=== PATIENT | male | born 1935 | race Caucasian/White ===

== ENCOUNTER → 2017-05-21 | Outpatient (CLI) | payer OTHER | LOC: FIMAGING 12:56 | PROVIDERS: ATTEND Internal Medicine | DX: R91.1 Solitary pulmonary nodule (principal); J43.2 Centrilobular emphysema; J84.9 Interstitial pulmonary disease, unspecified ==

== ENCOUNTER 2018-08-01 15:25 | Emergency (ER) | payer OTHER ==
[2018-08-01] MEDS ORDERED: TDAP ADULT 0.5 ML INJ (BOOSTRIX) IM ONE (15:35)
--- NOTE | 2018-08-01 15:36 | EDPHY ---
H & P Stated Complaint: left skin lac after tripping Time Seen by Provider: 08/01/18 15:35 HPI/ROS: CHIEF COMPLAINT: Left pretibial laceration post mechanical fall HISTORY OF PRESENT ILLNESS: 82-year-old male arrives via ambulance, not a trauma activation, complaining of acute left pretibial laceration. He describes approximately 3 hr prior to arrival he was walking on stairs, sustained a mechanical fall and impacted his left pretibial region against the stair He returned home and noted continued slow bleeding into his sock and shoe. He is able to bear weight. Denies: Head injury, so midline C-spine pain, peripheral paresthesia, weakness , numbness, syncope, back pain, inability to bear weight, palpitations, prodrome. PRIMARY CARE PROVIDER: Dr. Prince Spence REVIEW OF SYSTEMS: 10 systems reviewed and negative with the exception of the elements mentioned in the history of present illness PAST MEDICAL/SURGICAL HISTORY: [no anticoagulant use beyond daily aspirin. SOCIAL HISTORY: denies alcohol use at time of incident PHYSICAL EXAM 1) GENERAL: Well-developed, well-nourished, alert and oriented. Appears to be in no acute distress. Answering questions appropriately. Smiling. Conversational. Telling jokes. 2) HEAD: Normocephalic, atraumatic 3) HEENT: Pupils equal, round, reactive to light bilaterally. Negative Horners. Nasopharynx, oropharynx, clear. No deformity or angulation of nose. No septal hematoma. No rhinorrhea. No oral trauma. Ears bilaterally with normal tympanic membranes. No hemotympanum. No fluid or blood in the external auditory canal. No raccoon eyes. No Liriano sign.. 4) NECK: No cervical collar is on. Posterior cervical spine is nontender, no stepoff, no effusion. Full range of motion which does not elicit any midline cervical spine pain, no posterior midline tenderness, no step-off. 5) LUNGS: Clear to auscultation bilaterally, no wheezes, no rhonchi, no retractions. No obvious signs of trauma. No chest wall pain. No flaring, no grunting. Moving symmetrically. No crepitus. 6) HEART: Regular rate and rhythm, 7) ABDOMEN: No guarding, no rebound, no focal tenderness, no peritoneal signs, no signs of trauma, no ecchymosis 8) MUSCULOSKELETAL: Left pretibial skin avulsion. No underlying osseous discomfort. Soft compartments. DP PT pulses present and brisk distally. Proximally distally nontender. Moving all extremities, no focal areas of tenderness, no obvious trauma. 9) BACK: No midline vertebral tenderness, no fluctuance, no step-off, no obvious trauma, no visual or palpable abnormality. 10) SKIN: left pretibial skin avulsion, longitudinal measuring 1 cm in width and 6 cm in length. DIFFERENTIAL DIAGNOSIS: In no particular order include but limited to avulsion , abrasion, laceration, open fracture - Personal History Current Tetanus Diphtheria and Acellular Pertussis (TDAP): No Tetanus Vaccine Date: 2006 - Medical/Surgical History Hx Asthma: No Hx Chronic Respiratory Disease: Yes Hx Diabetes: No Hx Cardiac Disease: No Hx Renal Disease: No Hx Cirrhosis: No Hx Alcoholism: No Hx HIV/AIDS: No Hx Splenectomy or Spleen Trauma: No Other PMH: interstitial lung disease - Social History Smoking Status: Former smoker Constitutional: Initial Vital Signs Temperature (C) 36.5 C 08/01/18 15:29 Heart Rate 73 08/01/18 15:29 Respiratory Rate 18 08/01/18 15:29 Blood Pressure 123/82 H 08/01/18 15:29 O2 Sat (%) 92 08/01/18 15:29 O2 Delivery Mode Nasal Cannula O2 (L/minute) 2 Allergies/Adverse Reactions: Penicillins Allergy (Verified 08/01/18 15:34) Medical Decision Making - Diagnostics Imaging Results: Imaging Impressions Tibia/Fibula X-Ray 08/01/18 15:34 Impression: 1. Soft tissue injury with no acute osseous findings. 2. Atherosclerosis. Images reviewed myself Procedures: Patient's pretibial laceration was anesthetized 1% lidocaine with epinephrine and copiously irrigated by myself and staff. The patient has superficial skin avulsion that will not be amenable to closure. There was a small area on the more proximal aspect laceration which was bleeding slowly with resultant hemostasis after surgery foam application. The wound be allowed to heal via secondary intention. Shows no signs of infection to this area. ED Course/Re-evaluation: Re-evaluation with serial exams. Wound will be allowed to heal via secondary intention. Skin is superficial and thin and would not be amenable to closure with sutures. No signs of infection at this time. Given usual customary wound precautions instructions. Patient feels comfortable being discharged. Care of patient under supervision of secondary supervising physician Dr Lubin . - Data Points Medications Given: Discontinued Medications Diphtheria/Tetanus/Acell Pertussis (Boostrix) 0.5 ml IM .ONCE ONE Stop: 08/01/18 15:36 Last Admin: 08/01/18 15:55 Dose: 0.5 ml Tranexamic Acid (Cyklokapron) 500 mg TP EDNOW ONE Stop: 08/01/18 15:52 Last Admin: 08/01/18 15:58 Dose: 500 mg Departure - Departure Disposition: Home, Routine, Self-Care Clinical Impression: Left pretibial skin avulsion Condition: Good Instructions: Skin Avulsion (ED) Additional Instructions: Return to the ER if you develop redness, swelling, discharge, warmth to the wound, red streaks going up your leg, or any other symptoms that concern you. Referrals: Prince Spence MD [Medical Doctor] - 2-3 days, call for appt.
[2018-08-01] MEDS ORDERED: TRANEXAMIC ACID 1,000 MG/10 ML VIAL TP ONE (15:51)
[2018-08-01 16:58] VITALS: BP 133/74
== END 2018-08-01 16:55 | disposition home or self-care (01) ==
LOC: EDUNIT#
DX: S81.812A Laceration without foreign body, left lower leg, initial encounter (principal); W10.8XXA Fall (on) (from) other stairs and steps, initial encounter; Z23 Encounter for immunization

== ENCOUNTER 2018-08-18 09:50 | Emergency (ER) | payer OTHER ==
--- NOTE | 2018-08-18 10:14 | EDPHY ---
General - History Smoking Status: Former smoker Time Seen by Provider: 08/18/18 10:12 Narrative: CLINICAL IMPRESSION: Left foot pain, cellulitis ASSESSMENT/PLAN: Patient is a 82-year-old man with a history of interstitial lung disease who presents to the emergency department with complaints of left foot pain. Patient is afebrile and not toxic appearing, no acute distress. Physical exam reveals generalized pain to the lateral aspect of the left foot with associated erythema , calor and scabbing wounds. Foot and ankle x-ray revealed no evidence of acute bony abnormality. There was no evidence of fracture, dislocation or compartment syndrome. No findings to suggest gout or septic arthritis. History of physical examination is consistent with left foot pain and cellulitis. There was no evidence of systemic infection, abscess, necrotizing skin infection or deep space infection. Patient has had increased number of falls recently, case management was consulted and visited with the patient and his daughter. Had a long discussion with the patient's daughter about independent living and possible increased needs. Patient was given Keflex and Bactrim in the emergency department and will continue for the next week. He is well established with his PCP and will call to schedule an appointment for repeat exam for tomorrow, areas of erythema were marked for reference. They have a walker at home and will use as needed, prior to discharge he was able to ambulate independently with a mild limp. Conservative return precautions discussed- he will return for fever, redness, swelling, warmth, or streaking around the wound, new lesions, extremity swelling, pain out of proportion or for any other new, worsening or worrisome symptoms. Patient and daughter both verbalize understanding and are in agreement with plan. DIFFERENTIAL DX: Differential diagnosis including but not limited to contusion, sprain, fracture , dislocation ED COURSE: 1118: Case and plan of care discussed with Dr. Taylor 1122: On repeat examination the patient is well-appearing, reviewed x-ray findings with him. Awaiting arrival of daughter for further discussion as well as case management. Discussed admission however patient refuses. 1215: Patient's daughter at bedside, lives very close to father. They have a walker at home which we will we will utilize. They declined any need for further case management assistance, he is well established with his primary care provider and they will be seen tomorrow for repeat examination. CHIEF COMPLAINT: Left foot pain HPI: Patient is an 82-year-old male with a history of interstitial lung disease chronically on oxygen therapy who presents to the emergency department with complaints of left foot pain after sustaining a fall 2 days prior. Patient reports he was walking around his house when he accidentally tripped on his oxygen tubing causing him to injure his left foot. He is unsure if he rolled it or hit it on something. Patient noticed some redness to the outer portion of his foot yesterday, pain has persisted and ambulation is difficult. He is ambulating with a limp. Brought in by a friend from [employer] as a saw him struggling to walk. Patient did not hit his head, there was no loss of consciousness. He denies any neck or back pain. He denies any other injury or complaint. He does have a history of underlying eczema with chronic wounds on his feet. PAST MEDICAL HISTORY: Interstitial lung disease Family History: Noncontributory Social History: Former smoker ROS: A full 10 point review of systems was negative except for those mentioned in HPI. PHYSICAL EXAM: General Appearance: Alert, oriented, appropriate, cooperative, NAD, well hydrated, non-toxic appearing, VSS, no hypoxia. HEENT: TMs are clear bilaterally no perforation or FB, no injection, no evidence of serous or mucopurulent otitis. Oropharynx clear is no erythema or exudates, no tonsillar hypertrophy or asymmetry. Dentition without abnormality. Eyes: PERRLA, no acute vision change, nystagmus, swelling, discharge, pain or photosensitivity. Conjunctiva pink, no pallor or injection Neck: Supple, nontender, no lymphadenopathy, no midline pain, FROM, no meningismus. Respiratory: There are no retractions, lungs are clear to auscultation. Cardiac: Regular rate and rhythm, no murmurs or gallops. Gastrointestinal: Abdomen is soft, nontender, bowel sounds normal, no masses/ hernia, no rigidity, guarding or focal peritoneal findings. Skin: Warm, dry, no rashes, no nodules on palpation. Upper Extremities: Intact distal pulses, Full range of motion intact, no tenderness, no ecchymosis or edema Lower Extremities: Right lower extremity is unremarkable. Intact distal pulses , No edema, No tenderness, No cyanosis, full range of motion intact. Left lower extremity reveals healing scab of the anterior myers consistent with laceration sustained recently. Patient with multiple scabs superior to the left lateral malleolus, multiple scabs on the lateral aspect of the left foot. Patient with generalized erythema and calor of the lateral midfoot with associated tenderness to palpation. He has no medial or lateral malleolar tenderness to palpation. No calf tenderness bilaterally. MEDICAL DECISION MAKING: Patient was seen independently. Secondary supervising physician at time of evaluation was Dr. Taylor, he did not evaluate this patient. Diagnosis: Left foot pain, cellulitis. New, requires workup Summary: See Assessment and Plan for summary of ED visit Clinical lab tests: Not applicable. Independent visualization of images, tracing, or specimens: Yes. Decision to obtain medical records or history from someone other than the patient: No Review / Summarize previous medical records: Yes Discussed patient with another provider: Yes, Dr. Taylor Patient Progress: Stable, discharged. (Fang Gerber) Medical Decision Making: I did not see this patient while he was in the emergency department. However his care was discussed with the PA while the patient was in the department. I agree with treatment plan and management (Casey Taylor) - Diagnostics Imaging Results: Imaging Impressions Ankle X-Ray 08/18/18 10:01 Impression: There is no acute osseous abnormality identified. Foot X-Ray 08/18/18 10:14 Impression: There is no acute osseous abnormality identified. - Objective Vital Signs: Initial Vital Signs Temperature (C) 36.5 C 08/18/18 09:57 Heart Rate 81 08/18/18 09:57 Respiratory Rate 20 08/18/18 09:57 Blood Pressure 120/79 08/18/18 09:57 O2 Sat (%) 84 L 08/18/18 09:57 O2 Delivery Mode Nasal Cannula O2 (L/minute) 3 Allergies/Adverse Reactions: Penicillins Allergy (Verified 08/18/18 09:56) Home Medications: Medication Instructions Recorded Aspirin 08/18/18 Cephalexin [Keflex (*)] 500 mg PO Q6H #28 cap 08/18/18 Preservision Softgel 08/18/18 Sulfamethox/Tmp 800/160 mg 1 tab PO BID #14 tab 08/18/18 [Bactrim Ds] Medications Given: Discontinued Medications Acetaminophen (Tylenol) 650 mg PO EDNOW ONE Stop: 08/18/18 11:50 Last Admin: 08/18/18 12:08 Dose: 650 mg Cephalexin HCl (Keflex) 500 mg PO EDNOW ONE PRN Reason: Protocol Stop: 08/18/18 11:17 Last Admin: 08/18/18 11:41 Dose: 500 mg Trimethoprim/Sulfamethoxazole (Bactrim Ds) 1 ea PO EDNOW ONE PRN Reason: Protocol Stop: 08/18/18 11:18 Last Admin: 08/18/18 11:42 Dose: 1 ea Departure - Departure Disposition: Home, Routine, Self-Care Clinical Impression: Foot pain, left Cellulitis Qualifiers: Site of cellulitis: extremity Site of cellulitis of extremity: lower extremity Laterality: left Qualified Code(s): L03.116 - Cellulitis of left lower limb Condition: Good Instructions: Cellulitis (ED) Additional Instructions: DISCHARGE INSTRUCTIONS FROM YOUR DOCTOR Thank you for visiting our emergency department today. Please keep in mind that discharge from the emergency department does not mean that there is nothing wrong - it simply means that we have not identified an emergency condition that requires further evaluation or treatment in the hospital. You should always plan to follow up with primary care for re-evaluation of your condition in the next 1-2 days. It is imperative that you follow up with your primary care provider tomorrow for a repeat examination. If you have been referred to a specialist, please call as soon as possible ( today or tomorrow) to schedule your follow up appointment at the appropriate time; a podiatry referral has been provided. Rest, drink plenty of fluids, healthy foods, all to to help your immune system fight the infection and to help the healing process. Elevate the affected limb as much as possible above the level of the heart. Keflex (antibiotic) as prescribed four times daily, for the next 7 days. Bactrim DS (antibiotic) twice daily as prescribed for the next 7 days. Consume yogurt and take over the counter probiotics to help prevent diarrhea from the antibiotics. Tylenol 500 mg every 4-6 hours as directed for pain and/or fever. Do not exceed 3000 mg in 24 hours. Continue your regular medications as prescribed. Schedule a follow-up appointment with your primary care physician in the next 24 -48 hours for a wound check to ensure you are healing and don't require further antibiotics or intervention. Return for persistent or recurrent fever, vomiting, inability to tolerate the antibiotic(s) by mouth, redness, swelling, warmth, or streaking around the wound , increased redness outside the marked lines, new lesions, extremity swelling, pain out of proportion to what you would expect for this infection, chest or abdominal pain, vomiting, throat tightness, facial swelling, difficulty breathing or swallowing, sores in the mouth or the eyes, or for any other new, worsening or worrisome symptoms. People present with illnesses and injuries in different ways, and it is always possible that we have missed something. You may always return for re-evaluation if symptoms worsen or if they are not improving or if you develop new/different symptoms. Again, thank you for choosing our emergency department. We hope that you feel better. Referrals: Macey Garcia DPM [Doctor of Podiatric Medicine] - 2-3 days, if not improved Prince Spence MD [Primary Care Provider] - 1-2 days without fail Prescriptions: Cephalexin [Keflex (*)] 500 mg PO Q6H #28 cap Sulfamethox/Tmp 800/160 mg [Bactrim Ds] 1 tab PO BID #14 tab
[2018-08-18] MEDS ORDERED: CEPHALEXIN 500 MG CAP PO ONE (11:16)
[2018-08-18] MEDS ORDERED: SULFAMETHOX/TMP 800/160 MG 1 TAB PO ONE (11:17)
[2018-08-18] MEDS ORDERED: ACETAMINOPHEN 325 MG TAB ONE (11:49)
[2018-08-18] MEDS ORDERED: ACETAMINOPHEN 325 MG TAB PO ONE (11:49)
--- NOTE | 2018-08-18 12:25 | ASMTCAGE ---
CAGE Do you feel you ought to Answers: Yes cut down on your drinking or drug use? Do people annoy you by Answers: No criticizing your drinking or drug use? Do you feel guilty about Answers: Yes your drinking or drug use? Do you drink or use drugs Answers: No first thing in the morning ([employer])? Additional Comments See CM notes. Date Signed: 08/18/2018 12:25 PM Electronically Signed By:Laurie Lieberman RN
--- NOTE | 2018-08-18 12:46 | ASMTCMCOM ---
CM Note CM Note Notes: Reviewed chart. Pt presented to the Emergency Department with c/o left foot pain s/p a fall two days ago. Pt reports tripping on his oxygen tubing. History includes interstitial lung disease with chronic oxygen use, eczema, former smoker. Pt is a and lives in [place]. He is accompanied by a friend from [employer]. Pt's dghtr Concepcion is his emergency contact. Met with pt and pt's dghtr Concepcion to discuss potential needs. Pt was seen on 08/01/18 for a leg laceration s/p a fall. Pt reports that this was his third fall in recent months. The pt states he was recently put on continuous oxygen support and since that time he has been having trouble managing the oxygen tubing, especially at night. Discussed possibility of using a walker to assist pt with stability. Pt agreeable. Instructions provided on utilizing the walker with oxygen tubing. Pt verbalized understanding. Information provided on DME/loan closets for obtaining a walker. Pt's dghtr reports having a walker in her garage. [place] [employer] information provided and discussed for safety. CAGE completed secondary to a positive SBIRT screening. Pt states he "drinks way too much" and he knows he "should stop." The pt said he started drinking after his - he drinks at night to help him sleep. Resources offered. Encouraged pt to follow up with his PCP to discuss possible medications for sleep and/or depression. Education offered on counseling and grief/loss support groups. Pt states he used to attend a support group, but stopped going. Encouraged pt to reconsider trying a support group again. [facility] offered for additional resources. CM available for any further issues or concerns. Date Signed: 08/18/2018 12:42 PM Electronically Signed By:Laurie Lieberman RN
[2018-08-18 12:59] VITALS: BP 128/84
== END 2018-08-18 12:59 | disposition home or self-care (01) ==
DX: M79.672 Pain in left foot (principal); L03.116 Cellulitis of left lower limb; J98.4 Other disorders of lung; W01.198A Fall on same level from slipping, tripping and stumbling with subsequent striking against other object, initial encounter; Y93.01 Activity, walking, marching and hiking; Y92.009 Unspecified place in unspecified non-institutional (private) residence as the place of occurrence of the external cause; Z99.81 Dependence on supplemental oxygen